=== PATIENT | male | born 1985 | race Caucasian/White ===

== ENCOUNTER 2022-05-29 20:24 | Emergency (ER) | payer BC, OTHER ==
[2022-05-29] MEDS ORDERED: Diphtheria,Pertussis(Acell),Tetanus Vaccine 0.5 ML Syringe IM ONE (22:27)
== END 2022-05-29 23:15 | disposition home or self-care (01) ==
LOC: JD.ED 20:24
DX: S01.551A Open bite of lip, initial encounter (principal); E66.9 Obesity, unspecified; Z68.34 Body mass index [BMI] 34.0-34.9, adult; Z23 Encounter for immunization; Z86.16 Personal history of COVID-19; Z87.891 Personal history of nicotine dependence; W54.0XXA Bitten by dog, initial encounter; Y92.009 Unspecified place in unspecified non-institutional (private) residence as the place of occurrence of the external cause
CPT/HCPCS: 90471; 90715; 99283-25